=== PATIENT | male | born 1965 | race Caucasian/White ===

== ENCOUNTER 2022-07-11 07:34 | Day surgery (SDC) | payer BC ==
[2022-07-09 14:31] VITALS: BMI 35.9
[2022-07-11] MEDS ORDERED: Oxymetazoline HCl 0.05% (30 ML BOT) ONE (11:19)
[2022-07-11] MEDS ORDERED: Lidocaine 1% (PF) 30 ML VIAL ONE (11:54)
[2022-07-11] MEDS ORDERED: EPINEPHrine 1 MG/ML AMP ONE (11:54)
[2022-07-11] MEDS ORDERED: Bacitracin Zinc Ointment 30 gm TUBE ONE (11:54)
[2022-07-11] MEDS ORDERED: Scopolamine 1.5 mg/72 hour Patch ONE (11:55)
[2022-07-11] MEDS ORDERED: fentaNYL PF 100 MCG/2 ML SYRINGE ONE (11:55)
[2022-07-11] MEDS ORDERED: Ondansetron PF 4 MG/2 ML Vial ONE (12:10)
[2022-07-11] MEDS ORDERED: NEOSTIGMINE 3 MG/3 ML SYR 3 MG/3 ML SYRINGE ONE (12:10)
[2022-07-11] MEDS ORDERED: Glycopyrrolate 0.2 MG/ML 5 ML SYRINGE ONE (12:10)
[2022-07-11] MEDS ORDERED: Rocuronium Bromide 10 MG/ML (10ML VIAL) ONE (12:10)
[2022-07-11] MEDS ORDERED: Lidocaine 1% PF 5 ML VIAL ONE (12:10)
[2022-07-11] MEDS ORDERED: Dexamethasone 20 MG/5 ML VIAL ONE (12:10)
[2022-07-11] MEDS ORDERED: PROPOFOL 200 MG/20 ML VIAL ONE (12:10)
[2022-07-11] MEDS ORDERED: methylPREDNISolone Sod Succ 40 MG VIAL ONE (12:25)
[2022-07-11] MEDS ORDERED: SUGAMMADEX SODIUM 200 MG/2 ML VIAL ONE (12:25)
[2022-07-11] MEDS ORDERED: Dexamethasone 4 mg/ml Vial ONE (12:25)
[2022-07-11] MEDS ORDERED: Fentanyl 100 MCG/2 ML VIAL ONE (13:16)
[2022-07-11] MEDS ORDERED: Hydrocodone-Acetamin 15 ML UDCUP ONE (14:39)
== END 2022-07-11 15:28 | disposition home or self-care (01) ==
LOC: SDC 07:34
PROVIDERS: ATTEND Otolaryngology Plastic Surgery within the Head & Neck
PROC: 09TU8ZZ Resection of Right Ethmoid Sinus, Via Natural or Artificial Opening Endoscopic (ICD-10-PCS; principal; 2022-07-11)
PROC: 8E09XBZ Computer Assisted Procedure of Head and Neck Region (ICD-10-PCS; principal; 2022-07-11)
PROC: 099X8ZZ Drainage of Left Sphenoid Sinus, Via Natural or Artificial Opening Endoscopic (ICD-10-PCS; principal; 2022-07-11)
PROC: 09TV8ZZ Resection of Left Ethmoid Sinus, Via Natural or Artificial Opening Endoscopic (ICD-10-PCS; principal; 2022-07-11)
PROC: 099Q8ZZ Drainage of Right Maxillary Sinus, Via Natural or Artificial Opening Endoscopic (ICD-10-PCS; principal; 2022-07-11)
PROC: 099S8ZZ Drainage of Right Frontal Sinus, Via Natural or Artificial Opening Endoscopic (ICD-10-PCS; principal; 2022-07-11)
PROC: 099R8ZZ Drainage of Left Maxillary Sinus, Via Natural or Artificial Opening Endoscopic (ICD-10-PCS; principal; 2022-07-11)
PROC: 09TL8ZZ Resection of Nasal Turbinate, Via Natural or Artificial Opening Endoscopic (ICD-10-PCS; principal; 2022-07-11)
PROC: 099W8ZZ Drainage of Right Sphenoid Sinus, Via Natural or Artificial Opening Endoscopic (ICD-10-PCS; principal; 2022-07-11)
PROC: 099T8ZZ Drainage of Left Frontal Sinus, Via Natural or Artificial Opening Endoscopic (ICD-10-PCS; principal; 2022-07-11)
DX: J32.9 Chronic sinusitis, unspecified (principal); J34.89 Other specified disorders of nose and nasal sinuses; J34.3 Hypertrophy of nasal turbinates; J30.9 Allergic rhinitis, unspecified; Z79.82 Long term (current) use of aspirin; Z79.899 Other long term (current) drug therapy
CPT/HCPCS: 93005; 93010; J0171; J1100; J2001; J2405; J2704; J2920; J3010